=== PATIENT | female | born 1955 | race Caucasian/White ===

== ENCOUNTER → 2018-06-15 17:11 | Outpatient (CLI) | payer BC, SELFPAY ==
--- NOTE | 2018-06-15 17:18 | RAD_ITS ---
STUDY: X-RAY - LUMBAR SPINE REASON FOR EXAM: Female, 62 years old. Fall. TECHNIQUE: 5 view(s) of the lumbar spine were obtained. COMPARISON: None FINDINGS: Normal lumbar lordosis. There is no substantial scoliosis. There is a normal alignment of the vertebrae. Normal vertebral bodies and endplates. Normal disc space heights. There is no demonstrated fracture. There is atherosclerotic calcification of the abdominal aorta without a demonstrated aneurysm. RAD/L/S Spine Min 4 Views IMPRESSION: Normal x-ray examination of the lumbar spine. Electronically Signed: Gian Arroyo MD at 15:52 EDT , Service support ,
--- NOTE | 2018-06-15 17:18 | RAD_ITS ---
STUDY: X-RAY - THORACIC SPINE REASON FOR EXAM: Female, 62 years old. Fall. TECHNIQUE: 3 view(s) of the thoracic spine were obtained. COMPARISON: None. FINDINGS: Normal kyphosis of the thoracic spine. There is no substantial scoliosis. Normal thoracic vertebrae and endplates. Normal disc space heights. The soft tissue structures are unremarkable. RAD/Thoracic Spine 3 Views IMPRESSION: Normal x-ray examination of the thoracic spine. Electronically Signed: Gian Arroyo MD at 15:51 EDT , Service support ,
== END ==
PROVIDERS: Family Provider Family Medicine; PCP Family Medicine; Referring Provider Family Medicine; Visit Provider Family Medicine
DX: M54.9 Dorsalgia, unspecified (principal)
CPT/HCPCS: 72072; 72110

== ENCOUNTER → 2018-11-10 08:10 | Outpatient (CLI) | payer MEDICARE, BC, SELFPAY ==
--- NOTE | 2018-11-10 13:45 | LES_PTH ---
PATIENT: NOREEN JETT LOC: [facility] U#:[id number] AGE/SX: 70/F ROOM: RE11/10/[address]: Dr. Leonard Harris MD : 1955 BED: DIS: SPEC #: [id number] RECD: 11/11/18 07:30 STATUS: LUIS DESTINY #: [id number] JIMENA: 11/10/18 13:[address]: Leonard Harris DEPT: SURGICAL PATHOLOGY RECD BY: Adrian Gill ENTERED: 11/11/18 11:02 SP TYPE: Lesion OTHR DR: Dr. Broderick Rios MD Tissues: Skin of leg, NOS Procedures: Surgery Specimen Level IV HEADER OPERATION: Excision skin lesion left posterior distal thigh PRE-OP DIAGNOSIS: Skin lesion left posterior thigh L98.9 TISSUE SUBMITTED: Skin lesion left posterior thigh MICROSCOPIC DIAGNOSIS Skin lesion, left posterior distal thigh, excision: Benign epithelial inclusion cyst. AM:errol 11/12/18 MICROSCOPIC DESCRIPTION Slides are reviewed. GROSS DESCRIPTION Received in fixative is one container labeled with the patient's name and designated skin left posterior. The specimen consists of an ellipse of light engel excised skin measuring 3.2 x 1.5 and a depth of excision measuring 0.7 cm. The cutaneous surface displays an elevated light engel lesion measuring 1.5 cm in greatest dimension. The specimen is inked and sectioned to reveal chalky yellow cut surfaces. The specimen is totally submitted in two cassettes. / AM:errol 11/11/18 TC:1 CPT: 98534
[2018-11-10 14:40] VITALS: BMI 28.3
== END ==
PROVIDERS: Family Provider Family Medicine; PCP Family Medicine; Referring Provider Surgery; Visit Provider Surgery
DX: L98.9 Disorder of the skin and subcutaneous tissue, unspecified (principal)
CPT/HCPCS: 88305

== ENCOUNTER 2020-10-26 13:52 | Outpatient (RCR) | payer MEDICARE, BC, SELFPAY ==
[2018-11-17 10:02] VITALS: BMI 28.3
[2020-10-26] MEDS: COVID-19 VACC, MRNA(PFIZER)/PF 30 MCG/0.3 ML SYRINGE IM (13:36)
[2020-11-16] MEDS: COVID-19 VACC, MRNA(PFIZER)/PF 30 MCG/0.3 ML SYRINGE IM (13:26)
== END 2021-01-22 23:59 ==
LOC: IMMUN 13:52
PROVIDERS: PCP Student in an Organized Health Care Education/Training Program; Visit Provider Family Medicine
DX: Z23 Encounter for immunization (principal)
CPT/HCPCS: 0001A; 0002A; 91300